=== PATIENT | female | born 1990 | race African-American/Black ===

== ENCOUNTER 2024-01-15 10:00 | Emergency (ER) | payer MEDICAID ==
[~2024-01-15] VITALS: Ht 180.3 cm; Wt 131.0 kg
[2024-01-15 10:13] VITALS: O2SAT 96
[2024-01-15] MEDS ORDERED: CEPH500T MT (10:44)
[2024-01-15] MEDS ORDERED: TETANUS, DIPHTHERIA, PERTUSSIS VAC/PF 0.5ML (>10YR OLD) IM ONE (10:45)
[2024-01-15] MEDS: CEPHALEXIN 250MG CAPSULE PO ONE (11:55)
[2024-01-15] MEDS: TETANUS, DIPHTHERIA, PERTUSSIS VAC/PF 0.5ML (>10YR OLD) IM ONE (11:56)
[2024-01-15 12:02] VITALS: BP 154/90; PULSE 60; RESP 18; TEMP 36.78072; O2SAT 96
== END 2024-01-15 12:31 | disposition home or self-care (01) ==
LOC: ER 10:10
DX: S91.012A Laceration without foreign body, left ankle, initial encounter (principal); W18.30XA Fall on same level, unspecified, initial encounter; Y93.89 Activity, other specified; Y92.89 Other specified places as the place of occurrence of the external cause; Y99.8 Other external cause status
CPT/HCPCS: 90471; 90715; 99283

== ENCOUNTER 2024-02-11 12:39 | Emergency (ER) | payer MEDICAID ==
[~2024-02-11] VITALS: Ht 177.8 cm; Wt 142.0 kg
[~2024-02-11 12:39] MED LIST: CEPH500T MT
[2024-02-11 12:42] VITALS: BP 137/76; PULSE 102; RESP 16; TEMP 98.4; O2SAT 100; O2SAT 99
[2024-02-13] MEDS ORDERED: LINE600T14 MT (23:44)
== END 2024-02-11 17:01 | disposition left against medical advice (07) ==
LOC: ER 12:39
DX: Z00.00 Encounter for general adult medical examination without abnormal findings (principal); Z53.21 Procedure and treatment not carried out due to patient leaving prior to being seen by health care provider

== ENCOUNTER 2024-03-03 22:18 | Emergency (ER) | payer MEDICAID ==
[~2024-03-03] VITALS: Ht 177.8 cm; Wt 137.0 kg
[~2024-03-03 22:18] MED LIST changes: -CEPH500T MT; +METR-167 MT
[2024-03-03 23:02] VITALS: O2SAT 99
[2024-03-04] MEDS: IBUPROFEN 600MG TABLET PO STA (00:57)
[2024-03-04 01:35] LABS: BASOPHILS % 0.6 % (0.0-2.0); EOSINOPHILS % 1.4 % (0.0-5.0); HEMATOCRIT. 34.8 % (36.0-48.0); HEMOGLOBIN. 11.3 g/dL (12.0-16.0); LYMPHOCYTES % 37.3 % (20.0-50.0); MEAN CORPUSCULAR HEMOGLOBIN 28.5 pg (28.0-32.0); MEAN CORPUSCULAR HGB CONC 32.6 g/dL (31.0-37.0); MEAN CORPUSCULAR VOLUME 87.3 fL (81.0-99.0); MEAN PLATELET VOLUME 8.8 fl (7.4-10.4); MONOCYTES % 4.4 % (2.0-8.0); NEUTROPHILS % 56.3 % (40.0-76.0); PLATELET 292 x1000/uL (130-400); RED BLOOD CELL COUNT 3.99 mill/uL (4.2-5.4); RED CELL DISTRIBUTION WIDTH 14.3 % (11.6-14.6); WHITE BLOOD COUNT 9.3 x1000/uL (4.5-11.0)
[2024-03-04 01:43] LABS: CHLORIDE 103 mEq/L (98-107); POTASSIUM 3.7 mEq/L (3.5-5.1); SODIUM 135 mEq/L (136-145)
[2024-03-04 01:44] LABS: CARBON DIOXIDE 23 mEq/L (21-32)
[2024-03-04 01:45] LABS: CALCIUM 9.1 mg/dL (8.7-10.4)
[2024-03-04 01:49] LABS: CREATININE 0.6 mg/dL (0.6-1.0); GLUCOSE 99 mg/dL (70-105)
[2024-03-04 01:50] LABS: UREA NITROGEN BLOOD 9 mg/dL (9-23)
[2024-03-04] MEDS: IBUPROFEN 600MG TABLET PO NR (02:48)
[2024-03-04] MEDS ORDERED: NAPR-681 PO (04:18)
[2024-03-04] MEDS ORDERED: CYCL5TAB3 PO (04:19)
[2024-03-04 04:30] VITALS: BP 117/75; PULSE 76; RESP 20; TEMP 36.83628; O2SAT 100
[2024-03-04 07:10] LABS: CLARITY URINE CLEAR (CLEAR); COLOR URINE YELLOW (YELLOW); PH URINE 5.5 (4.5-8.0); PROTEIN URINE NEGATIVE (NEGATIVE); SPECIFIC GRAVITY URINE 1.018 (1.005-1.030)
[2024-03-04 07:11] LABS: GLUCOSE URINE NEGATIVE (NEGATIVE); KETONES URINE NEGATIVE (NEGATIVE); LEUKOCYTE ESTERASE URINE NEGATIVE (NEGATIVE); NITRITE URINE NEGATIVE (NEGATIVE); OCCULT BLOOD URINE NEGATIVE (NEGATIVE); UROBILINOGEN URINE 0.2 E.U./dL (0.2-1.0)
[2024-03-04 07:59] LABS: SQUAMOUS EPITHELIAL CELL URINE FEW /lpf (RARE/1+)
[2024-03-04 08:00] LABS: RBC URINE NONE SEEN /hpf (0-2); WBC URINE 0-2 /hpf (0-2)
[2024-03-04 08:01] LABS: BACTERIA URINE NONE SEEN
== END 2024-03-04 04:30 | disposition home or self-care (01) ==
LOC: ER 22:18
DX: M79.602 Pain in left arm (principal); M79.601 Pain in right arm
CPT/HCPCS: 36415; 80048; 81003; 81025; 85025; 93005; 93970; 99284

== ENCOUNTER 2024-03-05 01:21 | Emergency (ER) | payer MEDICAID ==
[~2024-03-05] VITALS: Ht 177.8 cm; Wt 145.0 kg
[~2024-03-05 01:21] MED LIST changes: +CYCL5TAB3 PO; +NAPR-681 PO
[2024-03-05 01:40] VITALS: O2SAT 100
[2024-03-05 02:08] VITALS: BP 131/83; PULSE 100; RESP 20; TEMP 97.5; O2SAT 98
[2024-03-05] MEDS: BACITRACIN ZINC OINT UDPKT TOP ONE (02:47)
[2024-03-05 03:41] LABS: BASOPHILS % 0.4 % (0.0-2.0); EOSINOPHILS % 1.4 % (0.0-5.0); HEMOGLOBIN. 11.4 g/dL (12.0-16.0); LYMPHOCYTES % 37.1 % (20.0-50.0); MEAN CORPUSCULAR HEMOGLOBIN 28.3 pg (28.0-32.0); MEAN CORPUSCULAR HGB CONC 31.8 g/dL (31.0-37.0); MEAN CORPUSCULAR VOLUME 89.1 fL (81.0-99.0); MONOCYTES % 5.6 % (2.0-8.0); NEUTROPHILS % 55.5 % (40.0-76.0); PLATELET 264 x1000/uL (130-400); RED BLOOD CELL COUNT 4.04 mill/uL (4.2-5.4); RED CELL DISTRIBUTION WIDTH 14.3 % (11.6-14.6)
[2024-03-05 03:45] LABS: CARBON DIOXIDE 23 mEq/L (21-32); CHLORIDE 105 mEq/L (98-107); POTASSIUM 3.9 mEq/L (3.5-5.1); SODIUM 137 mEq/L (136-145)
[2024-03-05 03:46] LABS: CALCIUM 9.1 mg/dL (8.7-10.4)
[2024-03-05 03:50] LABS: CREATININE 0.6 mg/dL (0.6-1.0)
[2024-03-05 03:51] LABS: GLUCOSE 111 mg/dL (70-105); UREA NITROGEN BLOOD 8 mg/dL (9-23)
[2024-03-05 03:52] LABS: ALANINE AMINOTRANSFERASE 38 IU/L (10-49); ALBUMIN 4.3 g/dL (3.2-4.8); ASPARTATE AMINOTRANSFERASE 301 IU/L (<34)
[2024-03-05 03:53] LABS: BILIRUBIN DIRECT 0.1 mg/dL (<=3.0); BILIRUBIN TOTAL 0.4 mg/dL (0.1-1.0); PROTEIN TOTAL 8.1 g/dL (6.0-8.3)
[2024-03-05 04:08] LABS: CREATINE KINASE 23628 IU/L (34-145)
[2024-03-05] MEDS ORDERED: SODIUM CHLORIDE 0.9% 3,000 ML IV NR (05:00)
[2024-03-05] MEDS ORDERED: SODIUM CHLORIDE 0.9% 1,000 ML IV ONE (05:00)
[2024-03-05 05:28] LABS: ERYTHROCYTE SEDIMENTATION RATE 70 mm/hr (0-20)
== END 2024-03-05 06:35 | disposition left against medical advice (07) ==
LOC: ER 01:21 → EDBEDREQTM 05:37 → EDBEDREQ 05:37 → ER 06:35
DX: M79.631 Pain in right forearm (principal); M79.632 Pain in left forearm; M62.82 Rhabdomyolysis; I10 Essential (primary) hypertension
CPT/HCPCS: 99283; 80076; 80048; 82550; 85025; 85651; 36415; J7030